=== PATIENT | male | born 1955 | race Hispanic/Latino ===

== ENCOUNTER → 2016-09-12 | Outpatient (CLI) | payer BC, OTHER | END | disposition home or self-care (01) | LOC: GMAB 15:25 | PROVIDERS: ATTEND Family Medicine | DX: R94.5 Abnormal results of liver function studies (principal) ==

== ENCOUNTER → 2016-09-17 | Outpatient (CLI) | payer BC, OTHER ==
--- NOTE | 2016-09-17 13:42 | US ---
Procedure: Right upper quadrant ultrasound Exam Date: 09/17/2016 12:00 AM CDT Ordering Provider: CHELI PITTMAN Clinical Indication: R94.5 Comparison: None Technique: Real-time ultrasonography was obtained over the right upper quadrant and advertising account representative images were recorded. Findings: There are no gallstones within the gallbladder lumen. There is no gallbladder wall thickening or pericholecystic fluid. Negative sonographic Glynn sign. The gallbladder is normal in size and contour. The extrahepatic common duct is normal in size measuring three mm. The liver is normal in size and contour. There is diffuse increased echogenicity of the liver consistent with fatty infiltration. There is no hepatic mass. There is no intrahepatic ductal dilatation. Pancreas is not well visualized. There is no ascites. Impression: Hepatic steatosis. Electronically signed by: Shaggy Doss MD 09/17/2016 1:42 PM CDT
== END | disposition home or self-care (01) ==
LOC: US 10:44
PROVIDERS: ATTEND Family Medicine
DX: R94.5 Abnormal results of liver function studies (principal)

== ENCOUNTER → 2016-12-04 | Outpatient (CLI) | payer BC | END | disposition home or self-care (01) | LOC: LAB.O 11:20 | DX: R74.8 Abnormal levels of other serum enzymes (principal); R74.0 Nonspecific elevation of levels of transaminase and lactic acid dehydrogenase [LDH] ==

== ENCOUNTER → 2017-08-21 | Outpatient (CLI) | payer BC | LOC: GMAB 11:20 | PROVIDERS: ATTEND Family Medicine | DX: Z00.00 Encounter for general adult medical examination without abnormal findings (principal) ==